=== PATIENT | female | born 1985 | race Caucasian/White ===

== ENCOUNTER → 2017-02-24 | Outpatient (CLI) | payer OTHER ==
--- NOTE | 2017-02-24 09:48 | US ---
HISTORY: Right upper quadrant pain, nausea, reflux. Study: Right upper quadrant abdominal ultrasound Comparison: None. Technique: Multiple aguilar scale and color flow Doppler images of the right upper quadrant were obtain ed. Findings: The liver is normal in echotexture and size. No focal intraparenchymal mass or intrahepatic biliary ductal dilatation can be observed. Multiple echogenic debris is seen within the gallbladder lumen likely representing small stones and sludge. The common bile duct is unremarkable measuring 4 mm. The gallbladder wall measures 2 mm by my measurement. No pericholecystic fluid. The right kidney appears normal in size without focal parenchymal mass or nephrolithiasis. The righ t kidney measurers 10.5 cm. No hydronephrosis or perirenal fluid can be observed. The pancreatic h ead and body are unremarkable. The pancreatic tail is largely obscured by overlying bowel gas. IMPRESSION: Cholelithiasis without sonographic evidence to suggest cholecystitis. Reported By:
== END | disposition home or self-care (01) | DRG 392 ==
LOC: RAD 09:11
PROVIDERS: ATTEND Nurse Practitioner Family
DX: R10.11 Right upper quadrant pain (principal); R11.0 Nausea; K21.9 Gastro-esophageal reflux disease without esophagitis; K80.80 Other cholelithiasis without obstruction
CPT/HCPCS: 76705

== ENCOUNTER 2017-03-02 08:37 | Day surgery (SDC) | payer OTHER ==
[~2017-03-02 08:37] MED LIST: FENTANYL INJ 250 mcg ONE
[2017-03-02] MEDS ORDERED: NS 50 ML IV + SPIKE MINIBAG* 50 ML IV ONE (09:13)
[2017-03-02] MEDS ORDERED: NS 1000 ML 1,000 ML ONE (09:13)
[2017-03-02] MEDS ORDERED: ANCEF VIAL 1 GM ONE (09:14)
[2017-03-02 10:02] LABS: BASOPHILS # (AUTO) 0.1 X10^3/uL (0.0-0.1); EOSINOPHILS # (AUTO) 0.1 x10^3/uL (0.0-0.2); EOSINOPHILS % (AUTO) 1.2 % (0.9-2.9); HEMATOCRIT 40.2 % (36.0-47.0); HEMOGLOBIN 13.6 g/dL (12.0-16.0); LYMPHOCYTES # (AUTO) 2.4 X10^3/uL (1.3-2.9); LYMPHOCYTES % (AUTO) 30.7 % (21.0-51.0); MEAN CORPUSCULAR HEMOGLOBIN 29.4 pg (27.0-34.0); MEAN CORPUSCULAR HGB CONC 33.7 g/dL (33.0-35.0); MEAN CORPUSCULAR VOLUME 87.1 fL (80.0-100.0); MEAN PLATELET VOLUME 8.2 fL (7.4-11.0); MONOCYTES # (AUTO) 0.6 x10^3/uL (0.3-0.8); MONOCYTES % (AUTO) 7.3 % (0.0-13.0); NEUTROPHILS # (AUTO) 4.7 x10^3/uL (2.2-4.8); NEUTROPHILS % (AUTO) 59.8 % (42.0-75.0); PLATELET COUNT 251 X10^3/uL (150.0-450.0); RED BLOOD COUNT 4.62 X10^6/uL (3.5-5.4); RED CELL DISTRIBUTION WIDTH 13.4 % (11.6-16.5); WHITE BLOOD COUNT 7.8 X10^3/uL (3.6-10.0)
[2017-03-02 10:07] LABS: SERUM PREGNANCY TEST, QUAL NEGATIVE <10 mIU/mL
[2017-03-02 10:13] LABS: ALANINE AMINOTRANSFERASE 23 Units/L (12-78); ALBUMIN 3.8 g/dL (3.4-5.0); ALKALINE PHOSPHATASE 42 Units/L (46-116); ASPARTATE AMINO TRANSFERASE 18 Units/L (15-37); BLOOD UREA NITROGEN 13 mg/dL (7-18); CALCIUM 8.6 mg/dL (8.5-10.1); CHLORIDE 105 mmol/L (98-107); CREATININE 0.95 mg/dL (0.55-1.02); GLUCOSE 97 mg/dL (65-99); SODIUM 139 mmol/L (136-145); TOTAL PROTEIN 7.4 g/dL (6.4-8.2); eGFR BLACK RACES > 60 (>60); eGFR NON BLACK RACES > 60 (>60)
[2017-03-02] MEDS ORDERED: MARCAINE 0.25% WITH EPI IJ ONE (10:55)
[2017-03-02] MEDS ORDERED: XYLOCAINE 1 % (PLAIN) ONE (10:55)
[2017-03-02] MEDS ORDERED: FENTANYL INJ 250 mcg ONE (11:01)
[2017-03-02] MEDS ORDERED: DILAUDID INJ IVP PRN (12:29)
[2017-03-02] MEDS ORDERED: ZOFRAN INJ 4 MG VIAL IVP PRN (12:29)
[2017-03-02] MEDS ORDERED: PHENERGAN INJ 25 MG IVP PRN (12:29)
[2017-03-02] MEDS ORDERED: REGLAN INJ 10 MG VIAL IVP PRN (12:29)
[2017-03-02] MEDS ORDERED: BENADRYL INJ 50 MG VIAL IVP PRN (12:29)
[2017-03-02] MEDS ORDERED: NORCO 5/325 MG TAB ONE (13:51)
[2017-03-02] MEDS ORDERED: QUELICIN (OR ANECTINE) ONE (14:09)
[2017-03-02] MEDS ORDERED: ROBINUL ONE (14:09)
[2017-03-02] MEDS ORDERED: XYLOCAINE 2 % (PLAIN) ONE (14:09)
[2017-03-02] MEDS ORDERED: VERSED ONE (14:09)
[2017-03-02] MEDS ORDERED: NORCURON INJ 10 MG VIAL ONE (14:09)
[2017-03-02] MEDS ORDERED: ZOFRAN INJ 4 MG VIAL ONE (14:09)
[2017-03-02] MEDS ORDERED: DIPRIVAN VIAL ONE (14:09)
[2017-03-02] MEDS ORDERED: LTA KIT LIDOCAINE 4% ONE (14:09)
[2017-03-02] MEDS ORDERED: SUPRANE IN ONE (14:09)
[2017-03-02 14:32] VITALS: BP 142/90
== END 2017-03-02 14:00 | disposition home or self-care (01) ==
LOC: SURG1 08:37
PROVIDERS: ATTEND Student in an Organized Health Care Education/Training Program
PROC: 0FT44ZZ Resection of Gallbladder, Percutaneous Endoscopic Approach (ICD-10-PCS; principal; 2017-03-02 11:15)
DX: K80.80 Other cholelithiasis without obstruction (principal)
CPT/HCPCS: 36415; 80053; 84703; 85025; A4222; S0020; J0330; J0690; J2001; J2250; J2405; J3010; J3490

== ENCOUNTER 2017-09-08 09:24 | Day surgery (SDC) | payer OTHER ==
[2017-09-08] MEDS ORDERED: D5 LR 1000 ML 1,000 ML IV ONE (09:38)
[2017-09-08 10:11] LABS: SERUM PREGNANCY TEST, QUAL NEGATIVE <10 mIU/mL
[2017-09-08] MEDS ORDERED: DIPRIVAN VIAL 20 ML ONE (10:47)
[2017-09-08 11:31] VITALS: BP 120/74
== END 2017-09-08 11:30 | disposition home or self-care (01) ==
LOC: SURG1 09:24
PROVIDERS: ATTEND Internal Medicine Gastroenterology
PROC: 0DB88ZX Excision of Small Intestine, Via Natural or Artificial Opening Endoscopic, Diagnostic (ICD-10-PCS; principal; 2017-09-08 15:45)
PROC: 0DJ08ZZ Inspection of Upper Intestinal Tract, Via Natural or Artificial Opening Endoscopic (ICD-10-PCS; principal; 2017-09-08 15:45)
PROC: 0DB58ZX Excision of Esophagus, Via Natural or Artificial Opening Endoscopic, Diagnostic (ICD-10-PCS; principal; 2017-09-08 15:45)
PROC: 0DB68ZX Excision of Stomach, Via Natural or Artificial Opening Endoscopic, Diagnostic (ICD-10-PCS; principal; 2017-09-08 15:45)
DX: R10.12 Left upper quadrant pain (principal); R11.2 Nausea with vomiting, unspecified; K21.9 Gastro-esophageal reflux disease without esophagitis; R63.4 Abnormal weight loss; K20.8 Other esophagitis; K29.60 Other gastritis without bleeding; K22.8 Other specified diseases of esophagus
CPT/HCPCS: 36415; 84703; A4217; J3490; J7120

== ENCOUNTER → 2017-10-07 | Outpatient (CLI) | payer OTHER ==
[2017-09-08 11:31] VITALS: BP 120/74
--- NOTE | 2017-10-07 11:51 | NM ---
HISTORY: Nausea, upper abdominal pain, poor appetite Study: Nuclear medicine gastric emptying scan Comparison: None Technique/findings: The patient was administered 0.54 mCi of technetium 99 M labeled sulfur colloid with egg. Anterior an d posterior images were obtained over 90 minutes. Gastric emptying half time was approximately 14 min utes on the posterior projection. Gastric emptying half time on the anterior projection was 7 minutes . These findings are within normal limits. There was less than 25% residual at 90 minutes. IMPRESSION: 1. No evidence of delayed gastric emptying. Reported By:
== END ==
LOC: RAD 07:39
PROVIDERS: ATTEND Internal Medicine Gastroenterology
DX: R11.0 Nausea (principal); R10.11 Right upper quadrant pain; R10.12 Left upper quadrant pain
CPT/HCPCS: 78264